=== PATIENT | female | born 1955 ===

== ENCOUNTER 2020-02-21 07:34 | Outpatient (CLI) | payer BC ==
--- NOTE | 2020-02-21 08:59 | MRI ---
EXAM: MRI of right knee PROVIDED CLINICAL HISTORY: Pain COMPARISON: None FINDINGS: The anterior cruciate ligament, posterior cruciate ligament, medial collateral ligament and lateral c ollateral ligamentous complex demonstrate an intact MR appearance. The distal thigh musculature and noninsertional portions of the quadriceps tendon are not included on the axial sequence, limiting nirmala luation of the extensor mechanism. There is partial thickness tearing involving the medial fibers of the vastus lateralis contribution to the quadriceps tendon approximately 2 cm proximal to the inse rtion. The extensor mechanism appears otherwise intact. There is nondisplaced oblique tear involving the posterior horn of the medial meniscus. The lateral m eniscus demonstrates no definite evidence for tear. There is extensive full-thickness articular cartilage loss involving the patellofemoral joint. There is probable synovitis in the expected location of the prefemoral fat with associated corticated remodeling/erosion of the subjacent distal femoral metaphyseal region. There is conspicuous osteophyt e formation arising from the medial trochlea. There is articular cartilage irregularity involving the central weightbearing portions of the medial femoral condyle with small focus of full thickness articular cartilage loss. There is a large knee joint effusion with small Mason's cyst. No focal concerning regional marrow or muscular signal abnormality apparent. IMPRESSION: 1. Partial tearing of the noninsertional vastus lateralis contribution to the quadriceps tendon, inco mpletely visualized and incompletely characterized on the basis of this study. 2. 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 3. Posterior horn medial meniscal tear.
== END 2020-02-21 07:35 | disposition home or self-care (01) ==
LOC: TBSIIMAG 07:34
PROVIDERS: ATTEND Orthopaedic Surgery
DX: S76.109A Unspecified injury of unspecified quadriceps muscle, fascia and tendon, initial encounter (principal)

== ENCOUNTER 2022-07-10 14:45 | Outpatient (CLI) | payer MEDICARE, BC | END 2022-07-10 14:46 | disposition home or self-care (01) | LOC: BICRAD 14:45 | PROVIDERS: ATTEND Podiatrist | DX: M25.572 Pain in left ankle and joints of left foot (principal); M19.072 Primary osteoarthritis, left ankle and foot ==